=== PATIENT | female | born 1950 | race Hispanic/Latino ===

== ENCOUNTER 2022-05-20 09:41 | Emergency (ER) | payer MEDICARE ==
[~2022-05-20] VITALS: Ht 149.9 cm; Wt 62.1 kg
[~2022-05-20 09:41] MED LIST: BACTRIM DS TAB1 EACH PO; BELSOMRA PO; CEFUROXIME250 MG PO; FLAGYL500 MG PO; HYDROCHLOROTHIA25 MG; LEXAPRO10 MG PO; LORAZEPAM1 MG PO; NIFEDIPINE ER30 M1 PO; SERTRALINE HCL50 MG PO
[2022-05-20] MEDS ORDERED: SODIUM CHLORIDE 0.9% 500ML 500 ML IV ONE (11:30)
[2022-05-20] MEDS ORDERED: CEFTRIAXONE 1 GM VIAL IV ONE (11:30)
[2022-05-20] MEDS ORDERED: DICYCLOMINE HCL10 MG PO (11:44)
[2022-05-20] MEDS ORDERED: LACTULOSE20 GM/30 M PO (11:56)
[2022-05-20] MEDS ORDERED: CEFTRIAXONE 1 GM VIAL ONE (11:57)
[2022-05-20 12:14] VITALS: BP 135/59
== END 2022-05-20 12:18 | disposition home or self-care (01) ==
LOC: FSED 10:15
DX: R10.9 Unspecified abdominal pain (principal); N39.0 Urinary tract infection, site not specified; E78.5 Hyperlipidemia, unspecified; E78.00 Pure hypercholesterolemia, unspecified; F41.9 Anxiety disorder, unspecified
CPT/HCPCS: 74176; 80053; 80076; 81003; 85025; 99283; J0696